=== PATIENT | male | born 1930 | race Caucasian/White ===

== ENCOUNTER 2018-02-18 01:53 | Inpatient (IN) | payer MEDICARE, OTHER ==
[~2018-02-18] VITALS: Ht 182.9 cm; Wt 55.0 kg
[2018-02-18 02:16] VITALS: BP 134/73; PULSE 106; RESP 18; TEMP 98.2; O2SAT 96
[2018-02-18] MEDS ORDERED: FINA5TAB2 (02:41)
[2018-02-18] MEDS ORDERED: MEMA1TAB2 PO (02:41)
[2018-02-18] MEDS ORDERED: CHOL10008 (02:41)
[2018-02-18] MEDS ORDERED: DONE5TAB7 PO (02:41)
[2018-02-18] MEDS ORDERED: METO1TAB9 PO (02:41)
[2018-02-18] MEDS ORDERED: ELDES (02:41)
[2018-02-18] MEDS ORDERED: OLAN5TAB PO (02:41)
[2018-02-18] MEDS ORDERED: ASPI81TA23 PO (02:41)
[2018-02-18] MEDS ORDERED: LIDOCAINE 1%/EPINEPHrine 1:100,000 SOLN 20 ML VIAL INFIL ONE (02:45)
[2018-02-18] MEDS ORDERED: TETANUS/DIPHTHERIA TOXOID ADULT 0.5 ML VIAL IM ONE (02:45)
--- NOTE | 2018-02-18 02:53 | PD ---
HPI . Scalp laceration Chief Complaint: Laceration/Skin Injury Time Seen by Provider: 02:39 Travel History International Travel<30 days: No Contact w/Intl Traveler<30days: No History of Present Illness HPI This is a patient with a history of dementia who lives at home who was found on the ground by his family shortly prior to arrival. He had struck his head on a hard floor. The patient is unable to give any history. [facility] Social History Alcohol Use: No Tobacco Use: No Allergies-Medications (Allergen,Severity, Reaction): Coded Allergies: No Allergy Information Available (Unverified , 02/18/18) Reported Meds & Prescriptions Reported Meds & Active Scripts Active Reported Eldertonic (Vitamin B Complex/Minerals) 0.5-0.6 Mg Elx Donepezil 5 Mg Tab 5 Mg PO HS Vitamin D3 (Cholecalciferol) 1,000 Unit Cap 1,000 Units DAILY Metoprolol Succinate ER 24 HR (Metoprolol Succinate) 50 Mg Tab 50 Mg PO DAILY Olanzapine 5 Mg Tab 5 Mg PO DAILY Memantine 10 Mg Tab 10 Mg PO DAILY Finasteride 5 Mg Tab 5 Mg DAILY Do not crush. Aspirin EC (Aspirin) 81 Mg Tabdr 81 Mg PO DAILY Review of Systems ROS Limitations: Poor Historian Physical Exam Narrative GENERAL: Awake and alert. Diaper was soaking wet. SKIN: Warm and dry. Large, V-shaped laceration on the forehead. Toenails are thickened and discolored. HEAD: Normocephalic. EYES: Pupils are equal. Extraocular movements are intact. NECK: Normal range of motion. RESPIRATORY: Nonlabored respirations. MUSCULOSKELETAL: Atraumatic. NEUROLOGICAL: Nonfocal. PSYCHIATRIC: Unable to assess. Data Data Last Documented VS Vital Signs Date Time Temp Pulse Resp B/P (MAP) Pulse Ox O2 Delivery O2 Flow Rate FiO2 02/18/18 02:19 106 18 02/18/18 02:16 98.2 134/73 (93) 96 Orders Orders Tetanus/Diphtheria Tox Adult (Tetanus/Di (02/18/18 02:45) Lidocai-Epi 1%-1:100,000 Inj (Xylocaine- (02/18/18 02:45) Ct Brain W/O Iv Contrast(Rout) (02/18/18 02:39) Complete Blood Count With Diff (02/18/18 03:42) Comprehensive Metabolic Panel (02/18/18 03:42) Urinalysis - C+S If Indicated (02/18/18 03:42) Iv Access Insert/Monitor (02/18/18 03:42) Sodium Chloride 0.9% Flush (Ns Flush) (02/18/18 03:45) Cath For Specimen (02/18/18 03:42) Sodium Chlor 0.9% 1000 Ml Inj (Ns 1000 M (02/18/18 04:30) Ceftriaxone Inj (Rocephin Inj) (02/18/18 04:30) Urine Culture (02/18/18 04:07) Admit Order (Ed Use Only) (02/18/18 ) Vital Signs (Adult) Q4H (02/18/18 04:48) Diet Heart Healthy (02/18/18 Breakfast) Activity Oob With Assistance (02/18/18 04:48) Notify Dr: Other (02/18/18 04:48) Labs Laboratory Tests Test 02/18/18 04:07 White Blood Count 10.5 TH/MM3 Red Blood Count 5.09 MIL/MM3 Hemoglobin 15.8 GM/DL Hematocrit 47.2 % Mean Corpuscular Volume 92.8 FL Mean Corpuscular Hemoglobin 31.0 PG Mean Corpuscular Hemoglobin Concent 33.4 % Red Cell Distribution Width 13.3 % Platelet Count 186 TH/MM3 Mean Platelet Volume 8.1 FL Neutrophils (%) (Auto) 77.0 % Lymphocytes (%) (Auto) 15.2 % Monocytes (%) (Auto) 6.7 % Eosinophils (%) (Auto) 0.1 % Basophils (%) (Auto) 1.0 % Neutrophils # (Auto) 8.1 TH/MM3 Lymphocytes # (Auto) 1.6 TH/MM3 Monocytes # (Auto) 0.7 TH/MM3 Eosinophils # (Auto) 0.0 TH/MM3 Basophils # (Auto) 0.1 TH/MM3 CBC Comment DIFF FINAL Differential Comment Urine Color YELLOW Urine Turbidity CLEAR Urine pH 6.5 Urine Specific [place] 1.015 Urine Protein 30 mg/dL Urine Glucose (UA) NEG mg/dL Urine Ketones NEG mg/dL Urine Occult Blood LARGE Urine Nitrite POS Urine Bilirubin NEG Urine Urobilinogen 0.2 MG/DL Urine Leukocyte Esterase LARGE Urine RBC 15-19 /hpf Urine WBC 100-200 /hpf Urine Squamous Epithelial Cells 0-5 /hpf Urine Bacteria MANY /hpf Microscopic Urinalysis Comment CATH-CULTURE IND Blood Urea Nitrogen 20 MG/DL Creatinine 1.10 MG/DL Random Glucose 133 MG/DL Total Protein 7.2 GM/DL Albumin 3.9 GM/DL Calcium Level 9.1 MG/DL Alkaline Phosphatase 117 U/L Aspartate Amino Transf (AST/SGOT) 26 U/L Alanine Aminotransferase (ALT/SGPT) 23 U/L Total Bilirubin 0.8 MG/DL Sodium Level 139 MEQ/L Potassium Level 4.2 MEQ/L Chloride Level 106 MEQ/L Carbon Dioxide Level 25.3 MEQ/L Anion Gap 8 MEQ/L Estimat Glomerular Filtration Rate 64 ML/MIN MDM Medical Decision Making Medical Screen Exam Complete: Yes Emergency Medical Condition: Yes Differential Diagnosis My differential diagnosis of head trauma includes but is not limited to scalp contusion, concussion, intracerebral hemorrhage. Narrative Course This is a demented patient who presents to us after an apparent fall with a blow to the head. He was found on the ground with a laceration on his forehead. Tetanus will be updated. CT of the head is pending. The laceration will be repaired. The patient's son is now at the bedside. They share a residence with separate entrances. The son keeps an eye on the patient using a baby monitor. The son reports that they have recently moved to the area and that the patient does not yet have local medical care established. We are concerned about the safety of this patient at home. Adult Protective Services will be contacted for an in home evaluation. I will check some baseline labs including a urinalysis. UA>>pos nitrite, large LE, 100-200 WBCs, many bact A L of IVF and a gram of Rocephin have been ordered. CBC & BMP Diagram 02/18/18 04:07 Total Protein 7.2, Albumin 3.9, Calcium Level 9.1, Alkaline Phosphatase 117, Aspartate Amino Transf (AST/SGOT) 26, Alanine Aminotransferase (ALT/SGPT) 23, Total Bilirubin 0.8 He will be placed in observation. Procedures Procedure Narrative LACERATION LOCATION: Forehead LENGTH: 6 cm NUMBER OF STITCHES/KONRAD: 3 subcutaneous sutures and 7 skin sutures REPAIR: The area of the laceration was prepped with Betadine and sterilely draped. The laceration was infiltrated with 7 mL of 1% lidocaine with epinephrine. The wound was copiously irrigated and explored without evidence of foreign body or skull fracture. The wound was closed using 3-0 Vicryl and 5-0 Prolene. This was a layered repair. A sterile dressing was applied. Patient tolerated the procedure well. Diagnosis Primary Impression: Scalp laceration Qualified Codes: S01.01XA - Laceration without foreign body of scalp, initial encounter Additional Impression: Urinary tract infection Qualified Codes: N39.0 - Urinary tract infection, site not specified Admitting Information Admitting Physician Requests: Observation Condition: Stable Jess Roman MD February 18, 2018 02:53
--- NOTE | 2018-02-18 03:12 | RADRPT ---
EXAM DATE: 02/18/2018 3:09 AM EDT AGE/SEX: 87 years / Male INDICATIONS: Trauma. Fall. CLINICAL DATA: This is the patient's initial encounter. Patient reports that signs and symptoms have been present for 1 day and indicates a pain score of Nonresponsive. MEDICAL/SURGICAL HISTORY: Non-responsive. Patient did not communicate. Non-responsive. RADIATION DOSE: 41.08 CTDI (mGy) COMPARISON: No prior exams available for comparison. TECHNIQUE: CT of the head without contrast. Using automated exposure control and adjustment of the mA and/or kV according to patient size, radiation dose was kept as low as reasonably achievable to ob tain optimal diagnostic quality images. FINDINGS: There is no evidence for intracranial hemorrhage, mass effect, mass lesions, or edema. The visualize d bony structures appear intact. Slight degree of brain atrophy is seen. Slight periventricular whit e matter changes are seen nonspecific mostly consistent with chronic small vessel ischemic changes. There are no signs of acute infarction for technique. Slight scalp swelling is seen in the left front al region. CONCLUSION: Slight chronic small vessel ischemic and atrophic changes, slight scalp swelling . Electronically signed by: Pearl Cano MD 02/18/2018 3:11 AM EDT
[2018-02-18] MEDS ORDERED: SODIUM CHLORIDE 0.9% FLUSH 10 ML FLUSH IV FLUSH PRN ×2 (03:45→05:00)
[2018-02-18 04:15] LABS: BILIRUBIN, URINE NEG (NEG); BLOOD, URINE LARGE (NEG); GLUCOSE,URINE NEG (NEG); KETONE, URINE NEG (NEG); NITRITE,URINE POS (NEG); PH, URINE 6.5 (5.0-8.5); URINE COLOR YELLOW (YELLW/STRAW); URINE LEUKOCYTE ESTERASE LARGE (NEG)
[2018-02-18 04:16] LABS: AUTOMATED NEUTROPHIL # 8.1 TH/MM3 (1.8-7.7); BASOPHIL # 0.1 TH/MM3 (0-0.2); EOSINOPHIL % 0.1 % (0.0-4.0); HEMATOCRIT 47.2 % (39.0-51.0); HEMOGLOBIN 15.8 GM/DL (13.0-17.0); LYMPH % 15.2 % (9.0-44.0); LYMPHOCYTE # 1.6 TH/MM3 (1.0-4.8); MEAN CELL VOLUME 92.8 FL (80.0-100.0); MEAN CORPUSCULAR HGB CONC 33.4 % (32.0-36.0); MEAN PLATELET VOLUME 8.1 FL (7.0-11.0); MONO % 6.7 % (0.0-8.0); MONOCYTE # 0.7 TH/MM3 (0-0.9); PLATELET COUNT 186 TH/MM3 (150-450); RED BLOOD COUNT 5.09 MIL/MM3 (4.50-5.90); RED CELL DISTRIBUTION WIDTH 13.3 % (11.6-17.2); WHITE BLOOD COUNT 10.5 TH/MM3 (4.0-11.0)
[2018-02-18 04:20] LABS: BACTERIA, URINE MANY /hpf; RBC, URINE 15-19 /hpf (0-3); SQUAMOUS EPITHELIAL CELL URINE 0-5 /hpf (0-5); WBC, URINE 100-200 /hpf (0-5)
[2018-02-18 04:22] LABS: CHLORIDE 106 MEQ/L (98-107); SODIUM (NA) 139 MEQ/L (136-145)
[2018-02-18 04:25] LABS: CALCIUM 9.1 MG/DL (8.5-10.1)
[2018-02-18 04:26] LABS: ALBUMIN 3.9 GM/DL (3.4-5.0); BICARBONATE 25.3 MEQ/L (21.0-32.0); BLOOD UREA NITROGEN 20 MG/DL (7-18); GLUCOSE,RANDOM 133 MG/DL (74-106)
[2018-02-18 04:29] LABS: ALT (GPT) 23 U/L (12-78); AST (GOT) 26 U/L (15-37); GLOMERULAR FILTRATION RATE 64 ML/MIN (>89)
[2018-02-18] MEDS ORDERED: SODIUM CHLOR 0.9% 1000 ML INJ 1,000 ML IV ONE (04:30)
[2018-02-18] MEDS ORDERED: cefTRIAXone INJ 1,000 MG in SODIUM CHLORIDE 0.9% INJ 100 ML IV ONE (04:30)
[2018-02-18 04:31] LABS: TOTAL BILIRUBIN ADULT 0.8 MG/DL (0.2-1.0); TOTAL PROTEIN 7.2 GM/DL (6.4-8.2)
[2018-02-18 04:32] LABS: ALKALINE PHOSPHATASE 117 U/L (45-117)
[2018-02-18] MEDS ORDERED: SENNOSIDES 8.6 MG TAB PO PRN (05:00)
[2018-02-18] MEDS ORDERED: LACTULOSE SYRUP 20 GM/30 ML CUP PO PRN (05:00)
[2018-02-18] MEDS ORDERED: NALOXONE HCL 0.4 MG/ML AMP IV PUSH PRN (05:00)
[2018-02-18] MEDS ORDERED: ACETAMINOPHEN 325 MG TAB PO PRN (05:00)
[2018-02-18] MEDS ORDERED: MAGNESIUM HYDROXIDE SUSP 30 ML CUP PO PRN (05:00)
[2018-02-18] MEDS ORDERED: ONDANSETRON HCL 4 MG/2 ML VIAL IVP PRN (05:00)
[2018-02-18] MEDS ORDERED: BISACODYL 10 MG SUPP RECTAL PRN (05:00)
[2018-02-18 05:04] VITALS: BP 121/50; PULSE 59; RESP 18; O2SAT 97
[2018-02-18 07:50] VITALS: BP 143/67; PULSE 73; RESP 18; TEMP 96.9; O2SAT 95
[2018-02-18] MEDS: DOCUSATE SODIUM 50 MG/SENNA 8.6 MG TAB PO SCH ×2 (09:29→22:01)
[2018-02-18] MEDS: FINASTERIDE 5 MG TAB PO SCH (09:29)
[2018-02-18] MEDS: OLANZapine 5 MG TAB PO SCH (09:29)
[2018-02-18] MEDS: METOPROLOL SUCCINATE 50 MG EXTENDED RELEASE TAB PO SCH (09:29)
[2018-02-18] MEDS: MEMANTINE HCL 10 MG TAB PO SCH (09:29)
[2018-02-18] MEDS: SODIUM CHLORIDE 0.9% FLUSH 10 ML FLUSH IV FLUSH SCH ×2 (09:29→22:01)
[2018-02-18] MEDS: SODIUM CHLOR 0.9% 1000 ML INJ 1,000 ML IV SCH ×2 (09:29→20:31)
--- NOTE | 2018-02-18 09:59 | HHI.HP ---
[facility] Non-Staff Admission Diagnosis UTI, scalp lac, dementia Diagnoses: (1) Near syncope (2) Rhabdomyolysis (3) Urinary tract infection (4) Scalp laceration Chief Complaint: Near syncope Travel History International Travel<30 Days: No Contact w/Intl Traveler <30 Da: No History of Present Illness Written by Lisa Gardner, acting as scribe for Dr. Samuel on 02/18/18 at 09:58. This is an 87-year-old demented patient who presented to the ED via private vehicle by family after being found on the ground at home. Patient presented with scalp lacerations and multiple abrasions as well as reports of patient being in a soiled depend diaper. Patient is demented, axox1 to self, unable to provide any history or information leading up to presentation to the hospital. Supposedly patient lives at home with his son who is not present at the bedside at the time of assessment. Upon presentation UA was positive for UTI, no leukocytosis, afebrile with mild rhabdomyolysis, CPK 390. Head CT negative for any acute changes. Review of Systems ROS Limitations: Clinical Condition (History of dementia), Altered Mental Status Past Family Social History Past Medical History Dementia BPH CAD Past Surgical History Unable to obtain. Reported Medications Active Reported Eldertonic (Vitamin B Complex/Minerals) 0.5-0.6 Mg Elx Donepezil 5 Mg Tab 5 Mg PO HS Vitamin D3 (Cholecalciferol) 1,000 Unit Cap 1,000 Units DAILY Metoprolol Succinate ER 24 HR (Metoprolol Succinate) 50 Mg Tab 50 Mg PO DAILY Olanzapine 5 Mg Tab 5 Mg PO DAILY Memantine 10 Mg Tab 10 Mg PO DAILY Finasteride 5 Mg Tab 5 Mg DAILY Do not crush. Aspirin EC (Aspirin) 81 Mg Tabdr 81 Mg PO DAILY Allergies: Coded Allergies: No Allergy Information Available (Unverified , 02/18/18) Active Ordered Medications Current Medications Medications (Trade) Dose Ordered Sig/Gregory Route Start Time Stop Time Status Last Admin Ceftriaxone Sodium 1000 mg/ Sodium Chloride 100 ml @ 200 mls/hr Q24H IV 02/19/18 05:00 (NS Flush) 2 ml UNSCH PRN IV FLUSH 02/18/18 05:00 (NS Flush) 2 ml BID IV FLUSH 02/18/18 09:00 02/18/18 09:29 (Tylenol) 650 mg Q4H PRN PO 02/18/18 05:00 (Zofran Inj) 4 mg Q6H PRN IVP 02/18/18 05:00 (Narcan Inj) 0.4 mg UNSCH PRN IV PUSH 02/18/18 05:00 (Bren-Colace) 1 tab BID PO 02/18/18 09:00 02/18/18 09:29 (Milk Of Magnesia Liq) 30 ml Q12H PRN PO 02/18/18 05:00 (Senokot) 17.2 mg Q12H PRN PO 02/18/18 05:00 (Dulcolax Supp) 10 mg DAILY PRN RECTAL 02/18/18 05:00 (Lactulose Liq) 30 ml DAILY PRN PO 02/18/18 05:00 (Aricept) 5 mg HS PO 02/18/18 21:00 (Proscar) 5 mg DAILY PO 02/18/18 09:00 02/18/18 09:29 (Namenda) 10 mg DAILY PO 02/18/18 09:00 02/18/18 09:29 (Toprol Xl) 50 mg DAILY PO 02/18/18 09:00 02/18/18 09:29 (ZyPREXA) 5 mg DAILY PO 02/18/18 09:00 02/18/18 09:29 Sodium Chloride 1,000 ml @ 84 mls/hr [id number] IV 02/18/18 09:00 02/18/18 21:00 02/18/18 09:29 Family History Unable to obtain. Social History Unable to obtain. Physical Exam Vital Signs Vital Signs Date Time Temp Pulse Resp B/P (MAP) Pulse Ox O2 Delivery O2 Flow Rate FiO2 02/18/18 07:50 96.9 73 18 143/67 (92) 95 02/18/18 05:56 02/18/18 05:04 59 18 121/50 (73) 97 Room Air 02/18/18 02:19 106 18 02/18/18 02:16 98.2 106 18 134/73 (93 96 Physical Exam GENERAL: Well-developed, well-nourished elderly male patient in NAD. Lying in bed a x o 1. SKIN: Warm and dry. Multiple abrasions on upper and lower extremities. Scalp laceration with dressing in place. Left eye ecchymosis. HEAD: Normocephalic. Scalp laceration. EYES: Pupils equal and round. No scleral icterus. No injection or drainage. ENT: No nasal bleeding or discharge. Mucous membranes pink and moist. NECK: Supple. Trachea midline. CARDIOVASCULAR: Regular rate and rhythm. S1, S2 noted. No murmur appreciated. No chest pain to palpation. RESPIRATORY: No accessory muscle use. Clear to auscultation. Breath sounds equal bilaterally. Breathing comfortably. GASTROINTESTINAL: Abdomen soft, non-tender, nondistended. Normoactive bowel sounds x4. MUSCULOSKELETAL: No obvious deformities. Extremities without clubbing, cyanosis , or edema. NEUROLOGICAL: Awake and alert, pleasantly confused. No obvious cranial nerve deficits. Motor grossly within normal limits. 5/5 muscle strength in bilateral upper and lower extremities. Clear speech. Laboratory Laboratory Tests Test 02/18/18 04:07 White Blood Count 10.5 Red Blood Count 5.09 Hemoglobin 15.8 Hematocrit 47.2 Mean Corpuscular Volume 92.8 Mean Corpuscular Hemoglobin 31.0 Mean Corpuscular Hemoglobin Concent 33.4 Red Cell Distribution Width 13.3 Platelet Count 186 Mean Platelet Volume 8.1 Neutrophils (%) (Auto) 77.0 Lymphocytes (%) (Auto) 15.2 Monocytes (%) (Auto) 6.7 Eosinophils (%) (Auto) 0.1 Basophils (%) (Auto) 1.0 Neutrophils # (Auto) 8.1 Lymphocytes # (Auto) 1.6 Monocytes # (Auto) 0.7 Eosinophils # (Auto) 0.0 Basophils # (Auto) 0.1 CBC Comment DIFF FINAL Differential Comment Urine Color YELLOW Urine Turbidity CLEAR Urine pH 6.5 Urine Specific [place] 1.015 Urine Protein 30 Urine Glucose (UA) NEG Urine Ketones NEG Urine Occult Blood LARGE Urine Nitrite POS Urine Bilirubin NEG Urine Urobilinogen 0.2 Urine Leukocyte Esterase LARGE Urine RBC 15-19 Urine WBC 100-200 Urine Squamous Epithelial Cells 0-5 Urine Bacteria MANY Microscopic Urinalysis Comment CATH-CULTURE IND Blood Urea Nitrogen 20 Creatinine 1.10 Random Glucose 133 Total Protein 7.2 Albumin 3.9 Calcium Level 9.1 Alkaline Phosphatase 117 Aspartate Amino Transf (AST/SGOT) 26 Alanine Aminotransferase (ALT/SGPT) 23 Total Bilirubin 0.8 Sodium Level 139 Potassium Level 4.2 Chloride Level 106 Carbon Dioxide Level 25.3 Anion Gap 8 Estimat Glomerular Filtration Rate 64 Total Creatine Kinase 390 Creatine Kinase MB 6.6 Creatine Kinase MB % 1.7 Date/Time Source Procedure Growth Status 02/18/18 04:07 Urine Catheterized Urine Urine Culture Pending Received Result Diagram: 02/18/18 0407 02/18/18406 Imaging Last Impressions Head CT 02/18/18 0239 Signed Impressions: CONCLUSION: Slight chronic small vessel ischemic and atrophic changes, slight scalp swelling . Septic Shock Reassessment Septic shock perfusion: reassessment completed Caprini VTE Risk Assessment Caprini VTE Risk Assessment: Mod/High Risk (score >= 2) Caprini Risk Assessment Model Point Value = 1 Point Value = 2 Point Value = 3 Point Value = 5 Age 41-60 Minor surgery BMI > 25 kg/m2 Swollen legs Varicose veins or History of unexplained or recurrent spontaneous Oral contraceptives or hormone replacement Sepsis (< 1 month) Serious lung disease, including pneumonia (< 1 month) Abnormal pulmonary function Acute myocardial infarction Congestive heart failure (< 1 month) History of inflammatory bowel disease Medical patient at bed rest Age 61-74 Arthroscopic surgery Major open surgery (> 45 min) Laparoscopic surgery (> 45 min) Malignancy Confined to bed (> 72 hours) Immobilizing plaster cast Central venous access Age >= 75 History of VTE Family history of VTE Factor V Leiden Prothrombin [id number] Lupus anticoagulant Anticardiolipin antibodies Elevated serum homocysteine Heparin-induced thrombocytopenia Other congenital or acquired thrombophilia Stroke (< 1 month) Elective arthroplasty Hip, pelvis, or leg fracture Acute spinal cord injury (< 1 month) Prophylaxis Regimen Total Risk Factor Score Risk Level Prophylaxis Regimen 0-1 Low Early ambulation 2 Moderate Order ONE of the following: *Sequential Compression Device (SCD) *Heparin 5000 units SQ BID 3-4 Higher Order ONE of the following medications: *Heparin 5000 units SQ TID *Enoxaparin/Lovenox 40 mg SQ daily (WT < 150 kg, CrCl > 30 mL/min) *Enoxaparin/Lovenox 30 mg SQ daily (WT < 150 kg, CrCl > 10-29 mL/min) *Enoxaparin/Lovenox 30 mg SQ BID (WT < 150 kg, CrCl > 30 mL/min) AND/OR *Sequential Compression Device (SCD) 5 or more Highest Order ONE of the following medications: *Heparin 5000 units SQ TID (Preferred with Epidurals) *Enoxaparin/Lovenox 40 mg SQ daily (WT < 150 kg, CrCl > 30 mL/min) *Enoxaparin/Lovenox 30 mg SQ daily (WT < 150 kg, CrCl > 10-29 mL/min) *Enoxaparin/Lovenox 30 mg SQ BID (WT < 150 kg, CrCl > 30 mL/min) AND *Sequential Compression Device (SCD) Assessment and Plan Problem List: (1) Near syncope ICD Code: R55 - Syncope and collapse (2) Rhabdomyolysis ICD Code: M62.82 - Rhabdomyolysis (3) Urinary tract infection ICD Code: N39.0 - Urinary tract infection, site not specified Status: Acute (4) Scalp laceration ICD Code: S01.01XA - Laceration without foreign body of scalp, initial encounter Status: Acute Assessment and Plan This is an 87-year-old demented patient who presented to the ED via private vehicle by family after being found on the ground at home. Patient presented with scalp lacerations and multiple abrasions as well as reports of patient being in a soiled depend diaper. Patient is demented, axox1 to self, unable to provide any history or information leading up to presentation to the hospital. Near syncope at home - With mild rhabdomyolysis, CPK 390, CK-MB 6.6. - Patient sustained scalp lacerations and multiple abrasions, reports of hitting her head at home. - Head CT negative for any acute abnormality. - Was given 1 L NS bolus in ED. Will start on IV fluids. Continue to monitor labs. - Patient high risk for falls. Room close to nursing station. Bed alarm. - Physical therapy consulted, appreciate input recommendations. Abnormal UA suspect UTI - With presence of leukocyte esterase and white blood cell. - Urine culture pending. Placed on ceftriaxone IV for now. Follow cultures. History of CAD: Will continue home beta-amy and aspirin. History of dementia - Will continue medications from home. - Concern for patient's living arrangements with history of dementia. - Case management assisting for possible placement. DVT prophylaxis SCDs. This note was transcribed by mony Gardner. I, Dr. Mauricio Samuel personally performed the history, physical exam, and medical decision making; and confirmed the accuracy of the information in the transcribed note. Authenticated by Dr. Mauricio Samuel on 02/18/18 at 09:58. Code Status full code Problem Qualifiers (1) Urinary tract infection: Qualified Codes: N39.0 - Urinary tract infection, site not specified (2) Scalp laceration: Qualified Codes: S01.01XA - Laceration without foreign body of scalp, initial encounter Lisa Gardner February 18, 2018 09:58 Mauricio Samuel MD February 18, 2018 09:59
[2018-02-18 11:49] VITALS: BP 118/71; PULSE 73; RESP 18; TEMP 96.3; O2SAT 96
[2018-02-18 15:50] VITALS: BP 117/58; PULSE 77; RESP 18; TEMP 96.8; O2SAT 95
--- NOTE | 2018-02-18 16:21 | PD.WCN.NOT ---
Wound Consult Description: Wound consult ordered by Jeannie for wound management Communicated with: Dianna WEI,Jeannie [facility] Recommendation: 1. Cleanse sutures and abrasion to top of head with normal saline pat dry. 2. Apply Calazime cream to abrasions on crown of head BID 3. Apply skin prep to suture line BID may leave open to air or if suture have exudate cover with dry dressing sign and date. 4. Ensure patient genitals are in correct anatomical position . 5. Reconsult wound care if treatment fails or wounds worsen Additional Information: Patient was seen today by fiction and nonfiction writer prose for wound management of scalp laceration.Patient alert in bed oriented to self only unable to recall any event /falls which caused injuries.Dressing removed from scalp to reveal a sutured laceration in which 7 suture are dry intact and incision is well approximated.No exudate or signs and symptoms of infection noted.Patient has 2 quarter size superficial abrasions to crown of head in which he does not recall how they happened.Suture line and abrasions cleansed with normal saline and pat dry .Calazime cream applied to abrasions.Skin prep applied to suture line and left open to air.Patient noted to have left black eye.Per request of Dianna WEI fiction and nonfiction writer prose assessed patient groin genital area.Patient has scattered subdermal hematomas on genital/scrotal area that present like genital petechiae.Patient verbalizes no discomfort or inching in genital area.Genitals cleansed with normal saline and male enteral cath in place.Due to patient mental status and inability to care for self independently fiction and nonfiction writer prose recommends commercial green retrofit architect assistance with ADLs and nutrition.patient had no questions or concern upon writers departure. Carlos Garcia [facility] February 18, 2018 16:21
[2018-02-18 20:00] VITALS: BP 124/77; PULSE 67; RESP 20; TEMP 97.8
[2018-02-18] MEDS: DONEPEZIL HCL 5 MG TAB PO SCH (22:01)
[2018-02-19] VITALS: BP 128/58; PULSE 69; RESP 20; TEMP 97.7; O2SAT 97
[2018-02-19 06:04] LABS: AUTOMATED NEUTROPHIL # 3.9 TH/MM3 (1.8-7.7); BASOPHIL % 0.7 % (0.0-2.0); EOSINOPHIL # 0.1 TH/MM3 (0-0.4); EOSINOPHIL % 2.2 % (0.0-4.0); HEMATOCRIT 39.5 % (39.0-51.0); HEMOGLOBIN 13.4 GM/DL (13.0-17.0); LYMPH % 25.5 % (9.0-44.0); LYMPHOCYTE # 1.6 TH/MM3 (1.0-4.8); MEAN CELL VOLUME 92.6 FL (80.0-100.0); MEAN CORPUSCULAR HEMOGLOBIN 31.6 PG (27.0-34.0); MEAN CORPUSCULAR HGB CONC 34.1 % (32.0-36.0); MEAN PLATELET VOLUME 8.4 FL (7.0-11.0); MONO % 10.3 % (0.0-8.0); MONOCYTE # 0.6 TH/MM3 (0-0.9); NEUT % 61.3 % (16.0-70.0); PLATELET COUNT 186 TH/MM3 (150-450); RED BLOOD COUNT 4.26 MIL/MM3 (4.50-5.90); WHITE BLOOD COUNT 6.2 TH/MM3 (4.0-11.0)
[2018-02-19] MEDS: cefTRIAXone INJ 1,000 MG in SODIUM CHLORIDE 0.9% INJ 100 ML IV SCH (06:29)
[2018-02-19 06:31] LABS: BICARBONATE 21.5 MEQ/L (21.0-32.0); CREATININE 0.85 MG/DL (0.60-1.30)
[2018-02-19 08:00] VITALS: BP 123/59; PULSE 43; RESP 16; TEMP 97.8; O2SAT 98
[2018-02-19] MEDS: MEMANTINE HCL 10 MG TAB PO SCH (08:35)
[2018-02-19] MEDS: FINASTERIDE 5 MG TAB PO SCH (08:35)
[2018-02-19] MEDS: OLANZapine 5 MG TAB PO SCH (08:35)
[2018-02-19] MEDS: METOPROLOL SUCCINATE 50 MG EXTENDED RELEASE TAB PO SCH (08:35)
[2018-02-19] MEDS: DOCUSATE SODIUM 50 MG/SENNA 8.6 MG TAB PO SCH (08:35)
[2018-02-19] MEDS: SODIUM CHLORIDE 0.9% FLUSH 10 ML FLUSH IV FLUSH SCH ×2 (08:36→22:16)
--- NOTE | 2018-02-19 10:28 | HHI.PR ---
Subjective Remarks Follow-up encephalopathy/UTI/severe dementia February 19, 2018-patient seen and examined, alert and states he is fine however does not follow any commands. Vital stable. Objective Vitals Vital Signs Date Time Temp Pulse Resp B/P (MAP) Pulse Ox O2 Delivery O2 Flow Rate FiO2 02/19/18 08:00 97.8 43 16 123/59 (80) 98 02/19/18 00:00 97.7 69 20 128/58 (81) 97 02/18/18 20:00 97.8 67 20 124/77 (93) 02/18/18 15:50 96.8 77 18 117/58 (77) 95 02/18/18 11:49 96.3 73 18 118/71 (87) 96 I/O 02/18/18 02/18/18 02/18/18 02/19/18 02/19/18 02/19/18 07:00 15:00 23:00 07:00 15:00 23:00 Intake Total 1100 ml 1114 ml 100 ml 120 ml Output Total 1700 ml Balance 1100 ml -586 ml 100 ml 120 ml Intake Oral 240 ml 120 ml IV Total 1100 ml 874 ml 100 ml Output Urine Total 1700 ml # Voids 4 1 # Bowel Movements 0 Result Diagram: 02/19/18 0450 02/19/18 0450 Imaging Last Impressions Head CT 02/18/18 0239 Signed Impressions: CONCLUSION: Slight chronic small vessel ischemic and atrophic changes, slight scalp swelling . Objective Remarks GENERAL: NAD SKIN: Warm and dry. HEAD: Normocephalic. EYES: No scleral icterus. No injection or drainage. Left periorbital laceration repair with surrounding minimal swelling NECK: Supple, trachea midline. No JVD or lymphadenopathy. CARDIOVASCULAR: Regular rate and rhythm without murmurs, gallops, or rubs. RESPIRATORY: Breath sounds equal bilaterally. No accessory muscle use. GASTROINTESTINAL: Abdomen soft, non-tender, nondistended. MUSCULOSKELETAL: No cyanosis, or edema. BACK: Nontender without obvious deformity. No CVA tenderness. A/P Problem List: (1) Near syncope ICD Code: R55 - Syncope and collapse (2) Rhabdomyolysis ICD Code: M62.82 - Rhabdomyolysis (3) Urinary tract infection ICD Code: N39.0 - Urinary tract infection, site not specified Status: Acute (4) Scalp laceration ICD Code: S01.01XA - Laceration without foreign body of scalp, initial encounter Status: Acute Assessment and Plan This is an 87-year-old demented patient who presented to the ED via private vehicle by family after being found on the ground at home. Patient presented with scalp lacerations and multiple abrasions as well as reports of patient being in a soiled depend diaper. Patient is demented, axox1 to self, unable to provide any history or information leading up to presentation to the hospital. Near syncope at home - With mild rhabdomyolysis, CPK 390, CK-MB 6.6. - Patient sustained scalp lacerations and multiple abrasions, reports of hitting her head at home. - Head CT negative for any acute abnormality. -Continue IV fluids. - Patient high risk for falls. - Physical therapy consulted, appreciate input recommendations. UTI -Currently on ceftriaxone IV daily pending culture History of CAD: continue home beta-amy and aspirin. History of dementia - continue medications from home. - Concern for patient's living arrangements with history of dementia. - Case management assisting for possible placement. DVT prophylaxis SCDs. Problem Qualifiers (1) Urinary tract infection: Qualified Codes: N39.0 - Urinary tract infection, site not specified (2) Scalp laceration: Qualified Codes: S01.01XA - Laceration without foreign body of scalp, initial encounter Mauricio Samuel MD February 19, 2018 10:28
[2018-02-19 12:00] VITALS: BP 148/69; PULSE 44; RESP 20; TEMP 98.1; O2SAT 95
[2018-02-19 16:00] VITALS: BP 154/69; PULSE 52; RESP 18; TEMP 97.8; O2SAT 96
[2018-02-19 20:00] VITALS: BP 143/67; PULSE 52; RESP 18; TEMP 96.7; O2SAT 94
[2018-02-19] MEDS: DONEPEZIL HCL 5 MG TAB PO SCH (22:09)
[2018-02-20] VITALS: BP 131/81; PULSE 66; RESP 18; TEMP 96.4; O2SAT 94
[2018-02-20] MEDS: cefTRIAXone INJ 1,000 MG in SODIUM CHLORIDE 0.9% INJ 100 ML IV SCH (05:04)
[2018-02-20 08:00] VITALS: BP 101/56; PULSE 67; RESP 18; TEMP 96.5; O2SAT 92
[2018-02-20] MEDS: SODIUM CHLORIDE 0.9% FLUSH 10 ML FLUSH IV FLUSH SCH ×2 (08:39→21:19)
[2018-02-20] MEDS: OLANZapine 5 MG TAB PO SCH (08:39)
[2018-02-20] MEDS: FINASTERIDE 5 MG TAB PO SCH (08:39)
[2018-02-20] MEDS: METOPROLOL SUCCINATE 50 MG EXTENDED RELEASE TAB PO SCH (08:39)
[2018-02-20] MEDS: MEMANTINE HCL 10 MG TAB PO SCH (08:39)
--- NOTE | 2018-02-20 09:28 | HHI.PR ---
Subjective Remarks Follow-up encephalopathy/UTI/severe dementia February 19, 2018-patient seen and examined, alert and states he is fine however does not follow any commands. Vital stable. February 20, 2018-patient seen and examined, appears much more alert today and afebrile. No acute event overnight. Objective Vitals Vital Signs Date Time Temp Pulse Resp B/P (MAP) Pulse Ox O2 Delivery O2 Flow Rate FiO2 02/20/18 08:00 96.5 67 18 101/56 (71) 92 02/20/18 00:00 96.4 66 18 131/81 (98) 94 02/19/18 20:00 96.7 52 18 143/67 (92) 94 02/19/18 16:00 97.8 52 18 154/69 (97) 96 02/19/18 12:00 98.1 44 20 148/69 (95) 95 I/O 02/19/18 02/19/18 02/19/18 02/20/18 02/20/18 02/20/18 07:00 15:00 23:00 07:00 15:00 23:00 Intake Total 100 ml 120 ml 480 ml 100 ml Balance 100 ml 120 ml 480 ml 100 ml Intake Oral 120 ml 480 ml IV Total 100 ml 100 ml # Voids 1 2 2 # Bowel Movements 0 0 Result Diagram: 02/19/18 0450 02/19/18 0450 Objective Remarks GENERAL: NAD SKIN: Warm and dry. HEAD: Normocephalic. EYES: No scleral icterus. No injection or drainage. Left periorbital laceration repair with surrounding minimal swelling NECK: Supple, trachea midline. No JVD or lymphadenopathy. CARDIOVASCULAR: Regular rate and rhythm without murmurs, gallops, or rubs. RESPIRATORY: Breath sounds equal bilaterally. No accessory muscle use. GASTROINTESTINAL: Abdomen soft, non-tender, nondistended. MUSCULOSKELETAL: No cyanosis, or edema. BACK: Nontender without obvious deformity. No CVA tenderness. A/P Problem List: (1) Near syncope ICD Code: R55 - Syncope and collapse (2) Rhabdomyolysis ICD Code: M62.82 - Rhabdomyolysis (3) Urinary tract infection ICD Code: N39.0 - Urinary tract infection, site not specified Status: Acute (4) Scalp laceration ICD Code: S01.01XA - Laceration without foreign body of scalp, initial encounter Status: Acute Assessment and Plan This is an 87-year-old demented patient who presented to the ED via private vehicle by family after being found on the ground at home. Patient presented with scalp lacerations and multiple abrasions as well as reports of patient being in a soiled depend diaper. Patient is demented, axox1 to self, unable to provide any history or information leading up to presentation to the hospital. Near syncope at home - With mild rhabdomyolysis, CPK 390, CK-MB 6.6. - Patient sustained scalp lacerations and multiple abrasions, reports of hitting her head at home. - Head CT negative for any acute abnormality. -Continue IV fluids. - Patient high risk for falls. -PT to treat and eval UTI -Currently on ceftriaxone IV daily pending culture History of CAD: continue home beta-amy and aspirin. History of dementia - continue medications from home. - Concern for patient's living arrangements with history of dementia. - Case management assisting for possible placement. DVT prophylaxis SCDs. Problem Qualifiers (1) Urinary tract infection: Qualified Codes: N39.0 - Urinary tract infection, site not specified (2) Scalp laceration: Qualified Codes: S01.01XA - Laceration without foreign body of scalp, initial encounter Mauricio Samuel MD Feb 20, 2018 09:28
--- NOTE | 2018-02-20 11:12 | HHI.DS ---
Discharge Summary Admission Date February 19, 2018 at 12:06 Discharge Date: Feb 20, 2018 Admitting Diagnosis UTI, scalp lac, dementia (1) Near syncope ICD Code: R55 - Syncope and collapse (2) Rhabdomyolysis ICD Code: M62.82 - Rhabdomyolysis (3) Urinary tract infection ICD Code: N39.0 - Urinary tract infection, site not specified Status: Acute (4) Scalp laceration ICD Code: S01.01XA - Laceration without foreign body of scalp, initial encounter Status: Acute Procedures None Brief History - From Admission Written by Lisa Gardner, acting as scribe for Dr. Samuel on 02/18/18 at 09:58. This is an 87-year-old demented patient who presented to the ED via private vehicle by family after being found on the ground at home. Patient presented with scalp lacerations and multiple abrasions as well as reports of patient being in a soiled depend diaper. Patient is demented, axox1 to self, unable to provide any history or information leading up to presentation to the hospital. Supposedly patient lives at home with his son who is not present at the bedside at the time of assessment. Upon presentation UA was positive for UTI, no leukocytosis, afebrile with mild rhabdomyolysis, CPK 390. Head CT negative for any acute changes. CBC/BMP: 02/19/18 0450 02/19/18 0450 Significant Findings Laboratory Tests Test 02/18/18 04:07 02/19/18 04:50 Neutrophils (%) (Auto) 77.0 % (16.0-70.0) Neutrophils # (Auto) 8.1 TH/MM3 (1.8-7.7) Urine Protein 30 mg/dL (NEG-TRACE) Urine Occult Blood LARGE (NEG) Urine Nitrite POS (NEG) Urine Leukocyte Esterase LARGE (NEG) Urine RBC 15-19 /hpf (0-3) Urine WBC 100-200 /hpf (0-5) Urine Bacteria MANY /hpf (NONE) Blood Urea Nitrogen 20 MG/DL (7-18) Random Glucose 133 MG/DL (74-106) Estimat Glomerular Filtration Rate 64 ML/MIN (>89) 86 ML/MIN (>89) Total Creatine Kinase 390 U/L (39-308) 338 U/L (39-308) Creatine Kinase MB 6.6 NG/ML (0.5-3.6) Red Blood Count 4.26 MIL/MM3 (4.50-5.90) Monocytes (%) (Auto) 10.3 % (0.0-8.0) Calcium Level 8.0 MG/DL (8.5-10.1) Chloride Level 114 MEQ/L (98-107) Imaging Last Impressions Head CT 02/18/18 9104 Signed Impressions: CONCLUSION: Slight chronic small vessel ischemic and atrophic changes, slight scalp swelling . PE at Discharge GENERAL: NAD SKIN: Warm and dry. HEAD: Normocephalic. EYES: No scleral icterus. No injection or drainage. Left periorbital laceration repair with surrounding minimal swelling NECK: Supple, trachea midline. No JVD or lymphadenopathy. CARDIOVASCULAR: Regular rate and rhythm without murmurs, gallops, or rubs. RESPIRATORY: Breath sounds equal bilaterally. No accessory muscle use. GASTROINTESTINAL: Abdomen soft, non-tender, nondistended. MUSCULOSKELETAL: No cyanosis, or edema. BACK: Nontender without obvious deformity. No CVA tenderness. Hospital Course While in the Hospital, patient was treated for: Near syncope at home - Patient sustained scalp lacerations and multiple abrasions, reports of hitting her head at home. - Head CT negative for any acute abnormality. - Patient high risk for falls. -PT to treat and eval UTI -Treated with ceftriaxone IV daily and will discharge on PO antibiotic History of CAD: Treated with home beta-amy and aspirin. History of dementia - Treated with medications from home. - Concern for patient's living arrangements with history of dementia. - Case management assisting for possible placement. Pt Condition on Discharge: Stable Discharge Disposition: Discharge to SNF Discharge Time: > 30 minutes Mauricio Samuel MD Feb 20, 2018 11:12
[2018-02-20] MEDS ORDERED: CEFU1TAB20 PO (11:19)
--- NOTE | 2018-02-20 11:19 | HHI.DCPOC ---
Discharge Care Plan Diagnosis: (1) Near syncope (2) Urinary tract infection (3) Rhabdomyolysis (4) Scalp laceration Goals to Promote Your Health * To prevent worsening of your condition and complications * To maintain your health at the optimal level Directions to Meet Your Goals Take your medications as prescribed Follow your dietary instruction Follow activity as directed Keep your appointments as scheduled Take your immunizations and boosters as scheduled If your symptoms worsen call your PCP, if no PCP go to Urgent Care Center or Emergency Room Smoking is Dangerous to Your Health. Avoid second hand smoke Call the 24-hour hour crisis hotline for domestic abuse at Lisa Gardner Feb 20, 2018 11:19
[2018-02-20 12:00] VITALS: BP 103/58; PULSE 65; RESP 18; TEMP 97.2; O2SAT 94
[2018-02-20 16:00] VITALS: BP 120/59; PULSE 67; RESP 18; TEMP 97.3; O2SAT 93
[2018-02-20 20:00] VITALS: BP 148/87; PULSE 88; RESP 18; TEMP 97.4; O2SAT 96
[2018-02-20] MEDS: DONEPEZIL HCL 5 MG TAB PO SCH (21:19)
[2018-02-21] VITALS: BP 138/61; PULSE 69; RESP 18; TEMP 98.4; O2SAT 96
[2018-02-21] MEDS: cefTRIAXone INJ 1,000 MG in SODIUM CHLORIDE 0.9% INJ 100 ML IV SCH (05:20)
[2018-02-21] MEDS: METOPROLOL SUCCINATE 50 MG EXTENDED RELEASE TAB PO SCH (08:59)
[2018-02-21] MEDS: FINASTERIDE 5 MG TAB PO SCH (08:59)
[2018-02-21] MEDS: MEMANTINE HCL 10 MG TAB PO SCH (08:59)
[2018-02-21 09:00] VITALS: BP 100/64; PULSE 66; RESP 19; TEMP 98.2; O2SAT 93
[2018-02-21] MEDS: SODIUM CHLORIDE 0.9% FLUSH 10 ML FLUSH IV FLUSH SCH ×2 (09:00→20:13)
[2018-02-21] MEDS: OLANZapine 5 MG TAB PO SCH (09:00)
[2018-02-21 13:25] VITALS: BP 141/75; PULSE 71; RESP 18; TEMP 96.8; O2SAT 94
--- NOTE | 2018-02-21 15:11 | HHI.PR ---
Subjective Remarks Patient seen and evaluated in follow-up for UTI and dementia Overall doing well Objective Vitals Vital Signs Date Time Temp Pulse Resp B/P (MAP) Pulse Ox O2 Delivery O2 Flow Rate FiO2 02/21/18 13:25 96.8 71 18 141/75 (97) 94 02/21/18 09:00 98.2 66 19 100/64 (76) 93 02/21/18 00:00 98.4 69 18 138/61 (86) 96 02/20/18 20:00 97.4 88 18 148/87 (107) 96 02/20/18 16:00 97.3 67 18 120/59 (79) 93 I/O 02/20/18 02/20/18 02/20/18 02/21/18 02/21/18 02/21/18 07:00 15:00 23:00 07:00 15:00 23:00 Intake Total 100 ml 600 ml 100 ml 450 ml Balance 100 ml 600 ml 100 ml 450 ml Intake Oral 600 ml 450 ml IV Total 100 ml 100 ml # Voids 2 4 2 1 # Bowel Movements 0 1 Result Diagram: 02/19/18 0450 02/19/18 0450 Imaging Last Impressions Head CT 02/18/18 0239 Signed Impressions: CONCLUSION: Slight chronic small vessel ischemic and atrophic changes, slight scalp swelling . Objective Remarks GENERAL: This is a well-nourished, well-developed patient, laceration frontal scalp/forehead CARDIOVASCULAR: Regular rate and rhythm without murmurs, gallops, or rubs. RESPIRATORY: Clear to auscultation. Breath sounds equal bilaterally. No wheezes , rales, or rhonchi. GASTROINTESTINAL: Abdomen soft, non-tender, nondistended. Normal active bowel sounds MUSCULOSKELETAL: Extremities without clubbing, cyanosis, or edema. NEURO: Oriented to person, otherwise confused Procedures None A/P Assessment and Plan Patient treated for urinary tract infection, E. coli Doing well with Rocephin Awaiting intermediate facility placement Ximena Alas MD Feb 21, 2018 15:11
[2018-02-21 16:10] VITALS: BP 108/55; PULSE 73; RESP 16; TEMP 98.2; O2SAT 95
[2018-02-21 20:00] VITALS: BP 157/70; PULSE 70; RESP 18; TEMP 96.1; O2SAT 96
[2018-02-21] MEDS: DONEPEZIL HCL 5 MG TAB PO SCH (20:13)
[2018-02-22] VITALS: BP 128/59; PULSE 76; RESP 18; TEMP 97.1; O2SAT 91
[2018-02-22 08:00] VITALS: BP 124/78; PULSE 101; RESP 18; TEMP 98; O2SAT 96
[2018-02-22] MEDS: SODIUM CHLORIDE 0.9% FLUSH 10 ML FLUSH IV FLUSH SCH ×2 (09:00→09:11)
[2018-02-22] MEDS: MEMANTINE HCL 10 MG TAB PO SCH (09:11)
[2018-02-22] MEDS: METOPROLOL SUCCINATE 50 MG EXTENDED RELEASE TAB PO SCH (09:11)
[2018-02-22] MEDS: FINASTERIDE 5 MG TAB PO SCH (09:11)
[2018-02-22] MEDS: OLANZapine 5 MG TAB PO SCH (09:11)
--- NOTE | 2018-02-22 09:31 | HHI.PR ---
Subjective Remarks Patient seen and evaluated today in follow-up for dementia and urinary tract infection. Overall improved. No new complaints. Objective Vitals Vital Signs Date Time Temp Pulse Resp B/P (MAP) Pulse Ox O2 Delivery O2 Flow Rate FiO2 02/22/18 00:00 97.1 76 18 128/59 (82) 91 02/21/18 20:00 96.1 70 18 157/70 (99) 96 02/21/18 16:10 98.2 73 16 108/55 (72) 95 02/21/18 13:25 96.8 71 18 141/75 (97) 94 I/O 02/21/18 02/21/18 02/21/18 02/22/18 02/22/18 02/22/18 07:00 15:00 23:00 07:00 15:00 23:00 Intake Total 100 ml 450 ml 720 ml 60 ml Balance 100 ml 450 ml 720 ml 60 ml Intake Oral 450 ml 720 ml 60 ml IV Total 100 ml # Voids 2 1 4 2 # Bowel Movements 1 0 0 Result Diagram: 02/19/18 0450 02/19/18 045 Objective Remarks GENERAL: This is a well-nourished, well-developed patient, laceration frontal scalp/forehead CARDIOVASCULAR: Regular rate and rhythm without murmurs, gallops, or rubs. RESPIRATORY: Clear to auscultation. Breath sounds equal bilaterally. No wheezes , rales, or rhonchi. GASTROINTESTINAL: Abdomen soft, non-tender, nondistended. Normal active bowel sounds MUSCULOSKELETAL: Extremities without clubbing, cyanosis, or edema. NEURO: Oriented to person, otherwise confused Procedures None A/P Problem List: (1) Near syncope ICD Code: R55 - Syncope and collapse (2) Rhabdomyolysis ICD Code: M62.82 - Rhabdomyolysis (3) Urinary tract infection ICD Code: N39.0 - Urinary tract infection, site not specified Status: Acute (4) Scalp laceration ICD Code: S01.01XA - Laceration without foreign body of scalp, initial encounter Status: Acute Assessment and Plan Patient treated for urinary tract infection, E. coli Doing well with Rocephin Awaiting group home facility placement Problem Qualifiers (1) Urinary tract infection: Qualified Codes: N39.0 - Urinary tract infection, site not specified (2) Scalp laceration: Qualified Codes: S01.01XA - Laceration without foreign body of scalp, initial encounter Ximena Alas MD Feb 22, 2018 09:31
== END 2018-02-22 13:37 | DRG 558 ==
LOC: PHED 01:53 → PHEDA 04:49 → PH3B 05:50 → OBSVTOIN 02-19 12:06
PROVIDERS: ADMIT Hospitalist; ATTEND Hospitalist
DX: M62.82 Rhabdomyolysis (principal); F03.90 Unspecified dementia, unspecified severity, without behavioral disturbance, psychotic disturbance, mood disturbance, and anxiety; N39.0 Urinary tract infection, site not specified; N40.0 Benign prostatic hyperplasia without lower urinary tract symptoms; B96.20 Unspecified Escherichia coli [E. coli] as the cause of diseases classified elsewhere; I25.10 Atherosclerotic heart disease of native coronary artery without angina pectoris; S01.01XA Laceration without foreign body of scalp, initial encounter; Z79.82 Long term (current) use of aspirin; Z79.899 Other long term (current) drug therapy; Z91.81 History of falling
CPT/HCPCS: 70450; 80048; 80053; 81001; 82550; 82552; 85025; 87077; 87086; 87186; 90714; G8987-GP; G8988-GP; J0696; J7030